=== PATIENT | female | born 1950 ===

== ENCOUNTER 2020-11-24 12:30 | Inpatient (IN) | payer OTHER ==
[~2020-11-24] VITALS: Ht 157.5 cm; Wt 56.2 kg
[2020-11-25] MEDS ORDERED: SYNTHROID75 MCG PO (09:57)
[2020-11-25] MEDS ORDERED: COZAAR50 MG PO (09:57)
[2020-11-26] MEDS ORDERED: CERAVE MOISTUR453 GM (14:00)
[2020-11-26] MEDS ORDERED: HYDROCHLOROTH12.5 MG (14:00)
[2020-11-26] MEDS ORDERED: REFRESH OPTIVE10 ML (14:00)
[2020-11-26] MEDS ORDERED: ROSUVASTATIN CA20 MG (14:00)
[2020-11-26] MEDS ORDERED: FAMOTIDINE20 MG (14:01)
[2020-11-26] MEDS ORDERED: OPTIVE EYE DROP15 ML (14:01)
[2020-11-26] MEDS ORDERED: HYDROCORTISONE30 G4 (14:01)
[2020-11-26] MEDS ORDERED: OMEPRAZOLE40 MG (14:01)
[2020-11-26] MEDS ORDERED: PANTOPRAZOLE SO40 MG (14:01)
[2020-11-26] MEDS ORDERED: VITAMIN D325 MC2 (14:02)
[2020-11-26] MEDS ORDERED: VITAMIN B-121000 MC4 (14:02)
== END 2020-11-28 11:52 | disposition home or self-care (01) | DRG 743 ==
LOC: OB/GYN 11-26 11:45 → O/R 11-26 12:40 → OB/GYN 11-26 17:21
PROVIDERS: ADMIT Specialist; ATTEND Specialist
PROC: 0JQC0ZZ Repair Pelvic Region Subcutaneous Tissue and Fascia, Open Approach (ICD-10-PCS; 2020-11-26)
PROC: 0UQF7ZZ Repair Cul-de-sac, Via Natural or Artificial Opening (ICD-10-PCS; 2020-11-26)
PROC: 0UT97ZZ Resection of Uterus, Via Natural or Artificial Opening (ICD-10-PCS; principal; 2020-11-26 11:45)
DX: N81.3 Complete uterovaginal prolapse (principal); N81.6 Rectocele; N80.0 Endometriosis of uterus; N88.9 Noninflammatory disorder of cervix uteri, unspecified; D25.2 Subserosal leiomyoma of uterus; I10 Essential (primary) hypertension